=== PATIENT | female | born 1995 | race Caucasian/White ===

== ENCOUNTER 2023-05-01 22:54 | Outpatient (CLI) | payer MEDICAID, SELFPAY ==
[2023-05-01 22:50] VITALS: BMI 24.4
[2023-05-01 23:26] VITALS: BP 129/71; PULSE 75
[2023-05-01 23:30] VITALS: RESP 17
[2023-05-01 23:56] VITALS: BP 129/71; PULSE 80; RESP 17; TEMP 36.6
== END 2023-05-02 | disposition home or self-care (01) ==
LOC: OPOB 23:17 → OBGYN 23:19
PROVIDERS: Visit Provider Obstetrics & Gynecology
DX: O26.899 Other specified pregnancy related conditions, unspecified trimester (principal); R10.2 Pelvic and perineal pain; Z3A.00 Weeks of gestation of pregnancy not specified
CPT/HCPCS: 59025; 99211

== ENCOUNTER 2023-05-09 04:07 | Inpatient (IN) | payer MEDICAID, SELFPAY ==
[2023-05-09] VITALS (38 sets, daily range): BP systolic 94–123; BP diastolic 50–68; PULSE 51–94; RESP 15–17; TEMP 36.6–37; O2SAT 97–100
[2023-05-09 04:31] LABS: Basophils % 0.3 %; Eosinophils % 0.4 %; Hematocrit 30.8 % (37.0-47.0); Hemoglobin 9.8 g/dL (11.5-15.3); Lymphocytes # 2.7 10^3/uL (0.8-4.8); Mean Corpuscular HGB Conc 31.8 g/dL (30.0-36.0); Mean Corpuscular Hemoglobin 26.1 pg (28.0-34.0); Mean Corpuscular Volume 81.9 fl (81-99); Mean Platelet Volume 13.3 fL (7.4-10.4); Monocytes # 0.6 10^3/uL (0.2-0.9); Monocytes % 5.8 %; Neutrophils # 6.59 10^3/uL (1.8-7.7); Nucleated Red Blood Cells % 0 %; Platelet Count 133 10^3/cmm (130-400); Red Blood Count 3.76 10^6/uL (4.1-5.3); Red Cell Distribution Width 13.1 % (12.1-15.1)
[2023-05-09] MEDS: ampicillin 2,000 MG in sodium chloride 0.9% (plus) 50 ML 100 MG IV (04:39)
[2023-05-09] MEDS: lactated ringers 1,000 ML 999 ML IV (04:39)
[2023-05-09 04:44] LABS: Slide Review Slide Review Perform
[2023-05-09 05:32] LABS: Amphetamines Screen Urine Negative (Negative); Barbiturates Screen Urine Negative (Negative); Benzodiazepines Screen Urine Negative (Negative); Cocaine Screen Urine Negative (Negative); Opiate Screen Urine Negative (Negative); PCP Screen Urine Negative (Negative); THC Screen Urine Positive (Negative)
--- NOTE | 2023-05-09 05:55 | ANES.PREANE2 ---
Pre-Anesthetic Assessment Height/Weight: Height 1.7 m Pulse BP 62 108/65 05/09/23 05:42 05/09/23 05:42 Preop Diagnosis: labor epidural Familial anesthetic complications: none Was Beta Esme taken within 24 hours: N/A Was Clonidine taken within 24 hours: N/A Last Intake: 23:00 Social Tobacco (Vape) and No alcohol Exam alert, oriented x 3, clear to auscultation bilaterally and regular rate & rhythm Airway Submandibular: within normal limits Cervical ROM: within normal limits Mallampati: Class II Dentition: full (poor decayed) Pulmonary None reported CV/HEM Anemia and None reported None reported Hepatic None reported GI Gastroesophageal Reflux Disease Metabolic None reported Musc/skel None reported Neuropsych Anxiety, Depression and Syncope Medications/Allergies Current Medications Generic Name Dose Route Start Last Admin Trade Name Freq PRN Reason Stop Dose Admin Lactated Ringer's 1,000 mls @ 999 mls/hr 05/09/23 04:24 05/09/23 04:39 Lactated Ringers IV 999 mls/hr .Q1H1M PRN Administration See label comments Data Anesthesia 05/09/23 04:15 Short CBC 05/09/23 Range/Units 04:15 WBC 10.0 (4.0-10.0) 10^3/uL Hgb 9.8 L (11.5-15.3) g/dL Hct 30.8 L (37.0-47.0) % MCV 81.9 (81-99) fl Plt Count 133 (130-400) 10^3/cmm Neut % (Auto) 66.0 % Neut # (Auto) 6.59 (1.8-7.7) 10^3/uL Cardiac Studies: No Data to Display
--- NOTE | 2023-05-09 06:38 | ANES.PROC ---
Anesthesia Procedures Procedure/Date: 05/09/23 Epidural: Time Out Performed: Yes Consents Signed: Procedure Consent and NPO Consent Consent: requested by attending/covering physician, from patient, risks and benefits reviewed, patient agrees to proceed and emergency procedure Lumbar Level: L3-L4 Epidural position: sitting Epidural procedure: sterile prep of area (betadine), 1% lidocaine to numb the area (3ml), 18 g needle, neg for paresthesia, test dose given, 1.5% xylocaine 1:200k epi (3ml/2ml), 0.2% Ropivacaine bolus ml (5ml), placed PCEA, no systemic response, sterile dressing applied, L.U.D. no apparent complications and 0.2% Ropiavacaine @ mls/hr (10ml/hr)
[2023-05-09] MEDS: calcium carbonate 500 mg Chew Tablet 1000 MG PO (07:16)
[2023-05-09] MEDS: ampicillin 1,000 MG in sodium chloride 0.9% (plus) 50 ML 100 MG IV (07:29)
[2023-05-09] MEDS: hyDROXYzine 25 mg Capsule 50 MG PO (07:30)
[2023-05-09] MEDS: dextrose 5%-lactated ringers 1,000 ML 125 ML IV (07:30)
--- NOTE | 2023-05-09 07:48 | PM.OBGYHP ---
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 The patient did receive care in [place], but was unhappy with the care she received around 37 weeks and did not go back since that time. She did receive a full complement of labs. I do not have complete access to those labs at this time, but she did bring in the CD and they do have access to them through an email. She is GBS positive. She was positive for THC, and admits to smoking most days during her . Otherwise, I am told that her lab work is negative. We are currently working on getting a more complete lab work results. Present Details : 2 Para: 1 Review of Systems General: Reports: 10 or more systems reviewed and unremarkable except in HPI and below Const: Reports: fatigue; Denies: fever(s) Eyes: Denies: change in vision Card: Denies: chest pain Musc: Reports: back pain Psych: Reports: anxiety (Treats with marijuana) Nolberto/Lymph: Denies: easy bruising Medications/Allergies Home Medications Medication Instructions Recorded Confirmed Last Taken Type No Known Home Medications 05/09/23 05/09/23 Unknown History Allergies Allergy/AdvReac Type Severity Reaction Status Date / Time No Known Allergies Allergy Verified 05/09/23 06:10 Vitals/I&O/Wt Last Vital Signs Pulse 71 05/09/23 07:32 Resp 16 05/09/23 03:56 BP 112/56 05/09/23 07:32 Pulse Ox 99 05/09/23 06:17 O2 Del Method Room Air 05/09/23 04:03 Weight last 48 hrs Weight 157 lb Physical Exam Const: COMMON NORMALS: patient oriented x3 and alert HENMT: COMMON NORMALS: moist oral mucous membranes HEAD & SCALP: normal to inspection Chest: COMMONS NORMALS: normal inspection of the chest Resp: COMMON NORMALS: clear to auscultation bilaterally AUSCULTATION: clear to auscultation bilaterally Cardio: COMMON NORMALS: regular rate and regular rhythm RATE: regular rate RHYTHM: regular rhythm GI: INSPECTION: Yes normal to inspection and Yes other (Gravid) Extremity: COMMON NORMALS: normal to inspection GENERAL: Yes edema (Trace) Neuro: COMMON NORMALS: patient oriented x3, moves all extremities and no sensory deficits noted SENSORIUM/ORIENTATION: Yes alert Psych: COMMON NORMALS: mental status grossly normal Skin: COMMON NORMALS: no rashes or lesions noted GENERAL SKIN EXAM: no rashes or lesions noted Data 05/09/23 22:53 A&P Assessment and plan (1) 41 weeks gestation of : The patient appears to be making good progress. An amniotomy was performed this morning. She has received ampicillin per group B strep protocol. She has received her second dose of ampicillin. (2) Marijuana use during : (3) care insufficient: Did have intermittent care. Her labs have been performed. (4) Group B streptococcal carriage complicating : Attestations Medical Necessity Statement*: I anticipate routine vaginal delivery and care. Coding Level of Care Code Acute Code for Chg Fwd Diagnoses 41 weeks gestation of O48.0; Z3A.41 Marijuana use during O99.320; F12.90 care insufficient O09.30 Group B streptococcal carriage complicating O99.820
--- NOTE | 2023-05-09 09:52 | PM.DELIVERY ---
Delivery Note: Date of delivery: May 09, 2023 Pre-delivery diagnoses: 27-year-old 2 para 1-0-0-1 at 41 weeks estimated gestational age in active labor Post-delivery diagnoses: Status post spontaneous vaginal Procedure: Spontaneous vaginal delivery Delivering Physician: Catracho Myers Estimated blood loss (mL): 50 Pre-Delivery Course: The patient presented to the hospital in active labor. She was GBS positive and received 2 doses of antibiotics. An epidural was placed. An amniotomy was performed. She progressed to complete without difficulty. Delivery: DELIVERY: The patient progressed to complete without difficulty. She delivered a male with a weight of 7 pounds 13 ounces with Apgars of 8, 9. The baby was delivered from the LITA position and placed on the mother's abdomen. The cord was then clamped and cut. There was no nuchal cord. There was no meconium. The placenta and 3 vessel cord were delivered intact shortly thereafter. The perineum and vaginal vault were carefully examined. Superficial vaginal wall lacerations were noted that did not require repair. Both the mother and the baby were in stable condition. Post-Delivery Status: Good A&P Assessment and plan (1) Spontaneous vaginal delivery: I anticipate routine care. (2) Group B streptococcal carriage complicating : (3) 41 weeks gestation of : (4) Marijuana use during : Coding Level of Care Code Acute Code for Chg Fwd Diagnoses Spontaneous vaginal delivery O80 Group B streptococcal carriage complicating O99.820 41 weeks gestation of O48.0; Z3A.41 Marijuana use during O99.320; F12.90
[2023-05-09] MEDS: benzocaine-menthol 78 gm Canister 1 SPRAY TOPICAL (14:40)
[2023-05-09] MEDS: lanolin oint 7 gm 1 APPLIC TOPICAL (14:40)
[2023-05-09] MEDS: ibuprofen 800 mg tablet PO (14:41)
[2023-05-09] MEDS: HYDROcodone-acetaminophen 5-325 mg Tablet PO (17:47)
[2023-05-09] MEDS: docusate sodium 100 mg Capsule PO (17:47)
[2023-05-09 23:04] LABS: Hematocrit 26.9 % (37.0-47.0); Hemoglobin 8.5 g/dL (11.5-15.3); Mean Corpuscular HGB Conc 31.6 g/dL (30.0-36.0); Mean Corpuscular Hemoglobin 26.2 pg (28.0-34.0); Mean Platelet Volume 13.3 fL (7.4-10.4); Platelet Count 110 10^3/cmm (130-400); Red Blood Count 3.24 10^6/uL (4.1-5.3); White Blood Count 11.1 10^3/uL (4.0-10.0)
[2023-05-10 00:56] VITALS: BP 103/65; PULSE 55; RESP 16; TEMP 36.8; O2SAT 98
[2023-05-10] MEDS: HYDROcodone-acetaminophen 5-325 mg Tablet PO ×2 (01:56→09:25)
[2023-05-10 04:46] VITALS: BP 110/61; PULSE 60; RESP 16; TEMP 36.7; O2SAT 98
--- NOTE | 2023-05-10 07:43 | P.DS_ITS ---
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 An epidural was performed. An amniotomy was performed. The patient was on group B strep protocol. She had an unremarkable vaginal delivery. Her course was also unremarkable. Her bleeding was within normal limits. Her pain was well controlled. There were no concerns. Information Peripartum Data: Delivery Method: Vaginal Physical Exam Narrative: The patient is alert. She appears comfortable. Her heart has a regular rate and rhythm with no murmurs appreciated. Lungs are clear to auscultation bilaterally. Her fundus is firm and below the umbilicus. Urinary Catheter Management: Park: Cath Placed During This Visit: yes, but has since been removed by the nurse Reason for Continuing Indwelling Catheter: Not indwelling catheter Urinary Catheter Date of Insertion: 05/09/23 Urinary Catheter Time of Insertion: 08:00 Date Urinary Catheter Removed: 05/09/23 Time Urinary Catheter Discontinued: 09:30 Discharge Data Studies Completed and Pending Laboratory Results WBC 11.1 10^3/uL (4.0-10.0) H 05/09/23 22:53 RBC 3.24 10^6/uL (4.1-5.3) L 05/09/23 22:53 Hgb 8.5 g/dL (11.5-15.3) L 05/09/23 22:53 Hct 26.9 % (37.0-47.0) L 05/09/23 22:53 MCV 83.0 fl (81-99) 05/09/23 22:53 MCH 26.2 pg (28.0-34.0) L 05/09/23 22:53 MCHC 31.6 g/dL (30.0-36.0) 05/09/23 22:53 RDW 13.0 % (12.1-15.1) 05/09/23 22:53 Plt Count 110 10^3/cmm (130-400) L 05/09/23 22:53 MPV 13.3 fL (7.4-10.4) H 05/09/23 22:53 Neut % (Auto) 66.0 % 05/09/23 04:15 Lymph % (Auto) 27.0 % 05/09/23 04:15 Dent % (Auto) 5.8 % 05/09/23 04:15 Eos % (Auto) 0.4 % 05/09/23 04:15 Baso % (Auto) 0.3 % 05/09/23 04:15 Neut # (Auto) 6.59 10^3/uL (1.8-7.7) 05/09/23 04:15 Lymph # (Auto) 2.7 10^3/uL (0.8-4.8) 05/09/23 04:15 Dent # (Auto) 0.6 10^3/uL (0.2-0.9) 05/09/23 04:15 Eos # (Auto) 0.0 10^3/uL (0.0-0.8) 05/09/23 04:15 Baso # (Auto) 0.0 10^3/uL (0.0-0.1) 05/09/23 04:15 Nucleated RBC % (auto) 0 % 05/09/23 04:15 Nucleated RBCs # 0.0 /100WBC 05/09/23 04:15 Urine Opiates Screen Negative ng/mL (Negative) 05/09/23 04:30 Ur Barbiturates Screen Negative ng/mL (Negative) 05/09/23 04:30 Ur Phencyclidine Scrn Negative ng/mL (Negative) 05/09/23 04:30 Ur Amphetamines Screen Negative ng/mL (Negative) 05/09/23 04:30 U Benzodiazepines Scrn Negative ng/mL (Negative) 05/09/23 04:30 Urine Cocaine Screen Negative ng/mL (Negative) 05/09/23 04:30 U Marijuana (THC) Screen Positive ng/mL (Negative) H 05/09/23 04:30 Vitals Last Vital Signs Temp 98.0 F 05/10/23 04:46 Pulse 60 05/10/23 04:46 Resp 16 05/10/23 04:46 BP 110/61 05/10/23 04:46 Pulse Ox 98 05/10/23 04:46 O2 Del Method Room Air 05/10/23 04:46 Discharge Plan Discharge Patient Disposition: Home Condition: Stable Prescriptions: New ibuprofen 800 mg Tablet 800 mg PO TID Qty: 45 0RF -U 106.5-1 mg Capsule 1 cap PO DAILY Qty: 90 0RF Discharge Orders: Discharge Order (Routine); Ordered 05/10/23 Ordered By: Catracho Myers Referrals: Catracho Myers MD [Physician] - 6 Weeks Discharge Diet: Usual diet Discharge Activity: Limit activity as instructed Patient Instructions: Opioid Safety 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
[2023-05-10] MEDS: docusate sodium 100 mg Capsule PO (09:25)
[2023-05-10] MEDS: prenatal vitamin Capsule 1 CAP PO (09:25)
[2023-05-10] MEDS: ibuprofen 800 mg tablet PO (09:26)
[2023-05-10] MEDS: promethazine 25 mg Tablet 12.5 MG PO (13:21)
[2023-05-10 13:44] VITALS: BP 104/62; PULSE 54; RESP 18; TEMP 36.9
[2023-05-10 13:45] VITALS: BP 104/62; PULSE 54; RESP 18; TEMP 36.9
--- NOTE | 2023-05-10 16:43 | ANE.PACU2 ---
Inpatient post-anesthesia follow up: Airway intact: Yes Vital signs: Temperature 98.4 F Pulse Rate 54 Respiratory Rate 18 Blood Pressure 104/62 Pulse Oximetry 98 Oxygen Delivery Me thod Room Air Oxygen Flow Rate Fraction of Inspir ed Oxygen Hydration adequate: Yes Nausea and vomiting: Yes Pain level: 1 Mental status: Baseline
== END 2023-05-10 14:00 | disposition home or self-care (01) | DRG 806 ==
LOC: OPOB 04:07 → OBGYN 04:07
PROVIDERS: Admitting Provider Family Medicine; Visit Provider Family Medicine
DX: O48.0 Post-term pregnancy (principal); O99.323 Drug use complicating pregnancy, third trimester; Z37.0 Single live birth; Z3A.41 41 weeks gestation of pregnancy; O99.824 Streptococcus B carrier state complicating childbirth; F12.90 Cannabis use, unspecified, uncomplicated
CPT/HCPCS: 36415; 51702; 59025; 59409; 80306; 85025; 85027; 99211; J0290; J2795; J7040; J7120; J7121; Q0169